=== PATIENT | male | born 1995 | race Two or more races ===

== ENCOUNTER 2020-12-04 13:12 | Emergency (ER) | payer OTHER ==
[~2020-12-04] VITALS: Ht 180.3 cm; Wt 68.9 kg
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
--- NOTE | 2020-12-04 13:48 | NUR ---
DR DE LOS SANTOS AT BEDSIDE FOR EVAL.
--- NOTE | 2020-12-04 14:25 | NUR ---
PT TO RADIOLOGY FOR FACIAL CT SCAN VIA [facility].
[2020-12-04] MEDS ORDERED: AMOX-430 PO (14:39)
--- NOTE | 2020-12-04 14:45 | NUR ---
Patient discharged to home in stable condition. Written and verbal after care instructions given. Patient verbalizes understanding of instruction. Pt ambulatory with a steady gait
[2020-12-04 14:46] VITALS: BP 135/66
== END 2020-12-04 14:47 | disposition home or self-care (01) ==
LOC: ER 13:12
DX: L03.211 Cellulitis of face (principal); Y04.0XXA Assault by unarmed brawl or fight, initial encounter; Y93.89 Activity, other specified; Y92.89 Other specified places as the place of occurrence of the external cause; Y99.8 Other external cause status
CPT/HCPCS: 70486-TC